=== PATIENT | male | born 1980 | race Caucasian/White ===

== ENCOUNTER → 2019-03-09 | Outpatient (CLI) | payer OTHER ==
--- NOTE | 2019-03-09 21:50 | REP ---
KUB ABDOMEN AND PELVIS: Two KUB films of the abdomen and pelvis performed. Bowel gas pattern is normal with no obstruction. No abnormal calcifications are seen. Visualized osseous structures are unremarkable. IMPRESSION: Negative KUB. Electronically Signed by Juan Isaac MD 03/10/2019 03:36 P
== END ==
LOC: M LRY 19:50
PROVIDERS: ATTEND Nurse Practitioner Family
DX: R10.13 Epigastric pain (principal)
CPT/HCPCS: 74018; 81002; G0463